=== PATIENT | female | born 1990 | race Caucasian/White ===

== ENCOUNTER 2016-08-13 22:20 | Inpatient (IN) | payer OTHER ==
--- NOTE | ~2016-08-13 | PA ---
Unit #: [id number] #: [id number] Patient: RADHA GRUBER [id number] [place] [address] [id number] I MR#: [id number] NAME: RADHA GRUBER. ROOM: P205 Age: 25 Sex: F Admission Date: 08/13/2016 : 1990 Date of Assessment: 08/14/2016 Attending Physician: Theron Monson M.D. Admitting Physician: Theron Monson M.D. Primary Care Physician: Levi Gupta M.D. PSYCHIATRIC ASSESSMENT DATE OF SERVICE 08/14/2016. INFORMANTS The patient partially reliable; OLOP, reliable. CHIEF COMPLAINT Suicidal ideation. HISTORY OF PRESENT ILLNESS Radha is a 25-year-old woman with a history of mood disorder and chemical dependence. She says that she "wanted to overdose on heroin," and actually took on Sunday and required CPR by a friend. She continued to endorse suicidal ideation and was admitted for detox. PAST PSYCHIATRIC HISTORY Last admission was in 01/2016 and she has had multiple custodial houses and hospitalizations at other local facilities. Her first hospitalization for this problem was as an adolescent. FAMILY PSYCHIATRIC HISTORY There is a family history of drug abuse and some maternal cousins, who suffer from bipolar disorder. SOCIAL HISTORY The patient denied any history of childhood abuse or neglect. She is single, unemployed, and stays at custodial houses or with friends. PAST MEDICAL HISTORY Arnold-Chiari malformation, chronic sinusitis, and polycystic ovary syndrome. MEDICATIONS None currently. ALLERGIES Griseofulvin and kiwi fruit. SUBSTANCE USE HISTORY As noted above. MENTAL STATUS EXAMINATION Radha presented as a disheveled woman, who appeared older than her Unit #: [id number] #: [id number] Patient: RADHA GRUBER stated age. Her speech was spontaneous and easily understood. Musculoskeletal examination was calm. Her mood was depressed and irritable with a congruent affect. She was alert and fully oriented. Her memory and concentration were fair to good. Her thought processes were goal directed with no active psychosis. She reported suicidal ideation with a plan to overdose on heroin and could not contract for safety. Her insight and judgment were fair. Her fund of knowledge and abstraction were fair. ASSETS AND LIABILITIES The patient knows local resources and presents voluntarily for treatment. Liabilities include noncompliance with treatment and ongoing substance use. ADMITTING DIAGNOSES AXIS I: Opiate dependence with withdrawal, major depressive disorder. AXIS II: Borderline personality disorder. AXIS III: Chronic sinusitis and polycystic ovary syndrome. AXIS IV: AXIS V: PSYCHIATRIC PLAN The patient was admitted and placed on suicide precautions and the opioid detox protocol. Her physical examination will be conducted and reviewed and her home medications for depression and mood instability will be restarted. TREATMENT GOALS Resolution of SI, establishment of sobriety, improvement in insight, and improvement in coping skills. DISCHARGE PLANNING Follow up with [facility]. ESTIMATED LENGTH OF STAY 5 days. Dictated by... Theron Monson M.D. SHANE/kristopher TD: 10/26/2016 14:38 JOB #: [id number] PSYCHIATRIC ASSESSMENT Page 1 of 1 X Theron Monson MD X PSYCHIATRIC ASSESSMENT
--- NOTE | ~2016-08-13 | DS ---
Unit #: [id number] #: [id number] Patient: PABLO GRUBER [id number] [place] [address] [id number] I MR#: [id number] NAME: PABLO GRUBER. ROOM: [facility] Age: 25 Sex: F Admission Date: 08/13/2016 : 1990 Discharge Date: 08/17/2016 Attending Physician: Theron Monson M.D. Primary Care Physician: Levi Gupta M.D. DISCHARGE SUMMARY REASON FOR ADMISSION Pablo is a 25-year-old woman with a long history of mood disorder, chemical dependence, and borderline personality disorder. She reported a recent overdose on heroin and cocaine and continued to not contract for safety. She was admitted for stabilization. LABORATORY DATA Please see hospital chart. HOSPITAL COURSE The patient was admitted and placed on the opioid detox protocol. Prozac and Abilify were restarted together with Afrin nasal spray b.i.d. She had an uneventful period of inpatient care and participated somewhat superficially in unit groups and activities. On the date of discharge, she was still seeking placement in inpatient care facility, having been rejected from previous facilities due to poor participation in their program. She was, however, able to contract for safety at that time. DISCHARGE DIAGNOSES AXIS I: Opioid dependence with withdrawal and major depressive disorder. AXIS II: Borderline personality disorder. AXIS III: Polycystic ovary syndrome, chronic sinusitis, history of hepatitis C, hypertension, and obesity. AXIS IV: AXIS V: DISCHARGE INSTRUCTIONS Follow up with chemical dependence programing of the patient's choice and [facility]. DISCHARGE MEDICATIONS Prozac 40 mg daily for depression and Abilify 10 mg at bedtime for mood stability. Primary care medicines unchanged. CONDITION AT DISCHARGE Fair. PROGNOSIS Fair. DIET AND ACTIVITY Per primary care doctor. Unit #: [id number] #: [id number] Patient: PABLO GRUBER Dictated by... Theron Monson M.D. MRH/modl TD: 10/26/2016 14:46 JOB #: [id number] DISCHARGE SUMMARY Page 1 of 1 X Theron Monson MD DISCHARGE SUMMARY
--- NOTE | ~2016-08-13 | HP ---
Unit #: [id number] #: [id number] Patient: RADHA GRUBER [id number] [place] [address] [id number] I MR#: [id number] NAME: RADHA GRUBER. ROOM: [facility] [place] Age: 25 Sex: F Admission Date: 08/13/2016 : 1990 Attending Physician: Theron Monson M.D. Admitting Physician: Theron Monson M.D. Primary Care Physician: Levi Gupta M.D. HISTORY AND PHYSICAL HISTORY OF PRESENT ILLNESS Radha is a 25 year old admitted to [address] [place] [address] because of her continued drug use. She has had numerous admissions to this facility for treatment of the same. PAST MEDICAL HISTORY 1. Long history of polysubstance abuse to include IV heroin. 2. High blood pressure. 3. Obesity. 4. Hepatitis C. 5. History of chiari malformation. 6. PCOS. PAST SURGICAL HISTORY Nothing reported. ALLERGIES Griseofulvin (rash). SOCIAL HISTORY Smokes one pack per day. Denies alcohol. Admits to a long history of opioid abuse to include IV heroin. FAMILY HISTORY Medically noncontributory. REVIEW OF SYSTEMS CONSTITUTIONAL: No fever or chills. HEENT: Denies any sore throat, ear pain or runny nose. CARDIOVASCULAR: Denies chest pain, irregular heart rhythm or palpitations. CHEST: Denies shortness of breath or cough. No hemoptysis. GASTROINTESTINAL: Denies nausea, vomiting, diarrhea or chronic constipation. ENDOCRINE: Denies history of increased thirst or urination. No recent significant weight loss or gain. GENITOURINARY: Denies dysuria, frequency, or hematuria. SKIN: Denies any rashes. HEMATOLOGIC: Denies history of increased bleeding or bruising. MUSCULOSKELETAL: Denies any hot, swollen joints. No generalized muscle pain. NEUROLOGIC: Denies problems with vision or speech. No frequent, severe headaches. No numbness, tingling or weakness in any extremities. Denies Unit #: [id number] #: [id number] Patient: RADHA GRUBER loss of bladder or bowel control. CURRENT MEDICATIONS 1. Detox protocol 2. Prozac 40 mg q day 3. Abilify 10 mg q day 4. Afrin nasal spray b.i.d. p.r.n. PHYSICAL EXAMINATION GENERAL: Alert, well-nourished, in no apparent distress. VITAL SIGNS: Blood pressure 120/64, heart rate 80, respirations 16, temperature 98.6. WEIGHT: 186 pounds. HEIGHT: 5'4". SKIN: Warm and dry without rash or lesion. HEENT: Normocephalic. TMs not viewed. Oral and nasal passages clear. Conjunctivae clear. Pupils equal, round and reactive to light and accommodation. Extraocular movements intact. NECK: Supple without lymphadenopathy or thyromegaly. HEART: Regular rate and rhythm without murmur. LUNGS: Clear. ABDOMEN: Soft, nontender. : Not done. EXTREMITIES: No evidence of cyanosis, clubbing or edema. Moves all extremities without focal deficit. NEUROLOGICAL: Grossly within normal limits. Cranial Nerves: II: Visual ramirez are intact. III, IV AND : Extraocular movements are intact. Pupils are equal, round and reactive to light. V: Facial sensation is grossly normal. VII: Facial movements and expression are normal. VIII: Auditory acuity grossly intact. IX, X: Uvula is midline. Phonation is normal. XI: Patient shrugs shoulders and turns head normally. XII: Tongue protrudes in the midline. Sensory and Motor Function: Sensory and motor sensation is grossly normal. Motor: moves all extremities well. Coordination: Gait is normal. Deep Tendon Reflexes: Intact. IMPRESSION Psychiatric admission RECOMMENDATIONS PSYCHIATRIC: Per psychiatrist. MEDICAL: I see no contraindications to participating in facility's activities. MEDICAL PROGNOSIS Good. MEDICAL CONDITION Stable. Dictated by... Gadiel JenkinsAMaine for Unit #: [id number] #: [id number] Patient: RADHA GRUBER Gildardo Johnston/balwinder TD: 08/15/2016 02:06 JOB #: [id number] HISTORY AND PHYSICAL Page 1 of 1 X Carmen Drummond HISTORY AND PHYSICAL
[~2016-08-13 22:20] MED LIST: AUGMENTIN875 M1 PO; DOXEPIN HCL25 MG PO; NO MEDICATIONS; PROZAC PO
[2016-08-14 09:36] LABS: BASOPHIL% 0.6 % (0-2.5); EOSINOPHIL# 0.3 X10e3 (0-0.7); HEMATOCRIT 40.2 % (35.0-45.0); HEMOGLOBIN 13.1 gm/dL (12.0-16.0); LYMPHOCYTE# 3.6 X10e3 (1.0-3.5); LYMPHOCYTE% 41.3 % (17.0-45.0); MEAN CELL VOLUME 89.7 FL (83-96); MEAN CORPUSCULAR HEMOGLOBIN 29.3 PG (28-34); MEAN CORPUSCULAR HGB CONC 32.6 g/dL (30-36); MEAN PLATELET VOLUME 9.8 FL (6.5-11.5); MONOCYTE# 0.6 X10e3 (0-1.0); MONOCYTE% 6.4 % (3.0-12.0); NEUTROPHIL# 4.2 X10e3 (1.5-7.1); NEUTROPHIL% 48.7 % (40-75); PLATELET COUNT 207 X10e3 (140-420); RED BLOOD COUNT 4.48 X10e (3.90-5.30); RED CELL DISTRIBUTION WIDTH 13.6 % (11.0-15.5); WHITE BLOOD COUNT 8.7 X10e3 (4.0-10.5)
[2016-08-14 09:45] LABS: URINE APPEARANCE TURBID; URINE BLOOD TRACE (NEG); URINE COLOR DK YELLOW; URINE GLUCOSE NEG (NEG); URINE KETONE 1+ (NEG); URINE LEUKOCYTE ESTERASE TRACE (NEG); URINE NITRATE NEG (NEG); URINE PROTEIN 1+ (NEG); URINE SPECIFIC GRAVITY 1.045 (1.003-1.035)
[2016-08-14 09:46] LABS: DIFF IND NO
[2016-08-14 09:47] LABS: URINE BACTERIA AUWI 2+ (NEGATIVE); URINE SQUAMOUS EPITHELIAL CELL MANY /[HPF]
[2016-08-14 10:00] LABS: URINE BILIRUBIN NEG (NEG)
[2016-08-14 10:16] LABS: BILIRUBIN,TOTAL 0.9 mg/dL (0.2-2.0); BUN/CREATININE RATIO 24.28; CALCIUM SERUM 9.3 mg/dL (8.4-10.2); CREATININE SERUM 0.7 mg/dL (0.6-1.4); GLOM FILT RATE Estimated 120.4 mL/min (>60); POTASSIUM 3.9 mmol/L (3.5-5.1); PROTEIN TOTAL SERUM 6.7 g/dL (6.0-8.3)
[2016-08-14 10:29] LABS: AMPHETAMINE NEG (NEG); BARBITURATES NEG (NEG); BENZODIAZEPINES NEG (NEG); COCAINE POS (NEG); MARIJUANA NEG (NEG); OPIATES POS (NEG); TRICYCLIC ANTIDEPRESSANTS POS (NEG); U METHADONE NEG (NEG)
== END 2016-08-17 13:20 | disposition home or self-care (01) | DRG 897 ==
LOC: P2S 22:20
PROVIDERS: Psychiatry & Neurology Psychiatry
PROC: HZ2ZZZZ Detoxification Services for Substance Abuse Treatment (ICD-10-PCS; principal; 2016-08-13)
DX: F11.23 Opioid dependence with withdrawal (principal); R45.851 Suicidal ideations; F32.9 Major depressive disorder, single episode, unspecified; F60.3 Borderline personality disorder; J32.9 Chronic sinusitis, unspecified; E28.2 Polycystic ovarian syndrome; Z88.8 Allergy status to other drugs, medicaments and biological substances; Z91.018 Allergy to other foods; Z81.8 Family history of other mental and behavioral disorders; Z86.19 Personal history of other infectious and parasitic diseases; F17.210 Nicotine dependence, cigarettes, uncomplicated
CPT/HCPCS: 80053; 80307; 81003; 84703; 85025; 86592